=== PATIENT | female | born 1960 | race Caucasian/White ===

== ENCOUNTER 2019-01-09 09:58 | Emergency (ER) | payer OTHER ==
[2019-01-09] MEDS ORDERED: ONDANSETRON 4 MG/2 ML VIAL ONE ×2 (10:14→11:14)
[2019-01-09] MEDS ORDERED: NA CHLORIDE 0.9% 1,000 ML ONE (10:14)
[2019-01-09 10:50] LABS: Albumin 3.9 g/dL (3.4-5.0); Bilirubin Direct 0.2 mg/dL (0-0.2); Bilirubin Total 0.7 mg/dL (0.2-1.0); Potassium 3.4 mmol/L (3.5-5.1); Protein, Total 7.9 g/dL (6.4-8.2)
[2019-01-09 10:53] LABS: Absolute Lymphocytes (CBC) 0.8 K/uL (0.7-4.9); Basophils % 0.2 % (0-1.3); Hematocrit 41.1 % (36.0-45.0); Lymphocytes % 7.3 % (15.3-44.8); MPV 8.5 fL (7.6-11.3); RBC Red Blood Cell Count 4.77 M/uL (3.86-4.86)
[2019-01-09 11:37] LABS: Blood Morphology Comment NOT SEEN (NOT SEEN); Platelet Estimate ADEQ
--- NOTE | 2019-01-09 12:21 | ER ---
Nurse's Notes [facility] Name: Kristy Card Age: 58 yrs Sex: Female : 1960 Arrival Date: 01/09/2019 Time: 09:59 Bed 13 Private MD: Diagnosis: Vomiting;Diarrhea, unspecified Presentation: 01/09 10:06 Presenting complaint: Patient states: woke up this morning at 5 AM with nausea, vomited em once, took a hydroxizine at 10, denies pain, fever or dizziness. Transition of care: patient was not received from another setting of care. Onset of symptoms was January 09, 2019. Risk Assessment: Do you want to hurt yourself or someone else? Patient reports no desire to harm self or others. Initial Sepsis Screen: Does the patient meet any 2 criteria? No. Patient's initial sepsis screen is negative. Does the patient have a suspected source of infection? No. Patient's initial sepsis screen is negative. Care prior to arrival: None. 10:06 Method Of Arrival: Wheelchair em 10:10 Acuity: PRESLEY 3 iw Historical: - Allergies: 10:08 Sulfa (Sulfonamide Antibiotics); em - PMHx: 10:08 Diabetes - NIDDM; Hypertension; sick sinus symdrome; em - PSHx: 10:08 pacemaker; em - Immunization history:: Adult Immunizations not up to date. - Social history:: Smoking status: Patient/guardian denies using tobacco. - Ebola Screening: : Patient negative for fever greater than or equal to 101.5 degrees Fahrenheit, and additional compatible Ebola Virus Disease symptoms Patient denies exposure to infectious person Patient denies travel to an Ebola-affected area in the 21 days before illness onset No symptoms or risks identified at this time. Screenin:08 Abuse screen: Denies threats or abuse. Nutritional screening: No deficits noted. em Tuberculosis screening: No symptoms or risk factors identified. Fall Risk None identified. Assessment: 10:08 General: Appears in no apparent distress. uncomfortable, Behavior is calm, cooperative, em Denies fever. Pain: Denies pain. Neuro: Level of Consciousness is awake, alert, obeys commands, Oriented to person, place, time, situation, Appropriate for age Reports weakness generalized weakness. Cardiovascular: Capillary refill < 3 seconds Patient's skin is warm and dry. Respiratory: Airway is patent Respiratory effort is even, unlabored, Respiratory pattern is regular, symmetrical. GI: Abdomen is flat, Bowel sounds present X 4 quads. Abd is soft and non tender X 4 quads. Reports nausea, vomiting, Patient currently denies diarrhea. : Denies burning with urination. Derm: Skin is intact, is healthy with good turgor, Skin is pink, warm \T\ dry. Musculoskeletal: Capillary refill < 3 seconds, Range of motion: intact in all extremities. 11:10 Reassessment: Patient appears in no apparent distress at this time. Patient and/or em family updated on plan of care and expected duration. Pain level reassessed. Patient is alert, oriented x 3, equal unlabored respirations, skin warm/dry/pink. Patient denies pain at this time. Patient states feeling better. Patient states symptoms have improved. 12:30 Reassessment: Patient appears in no apparent distress at this time. Patient and/or em family updated on plan of care and expected duration. Pain level reassessed. Patient is alert, oriented x 3, equal unlabored respirations, skin warm/dry/pink. Patient states feeling better. Patient states symptoms have improved. Vital Signs: 10:08 BP 129 / 89; Pulse 75; Resp 18; Temp 98.0; Pulse Ox 100% on R/A; Pain 0/10; em 11:00 BP 119 / 65; Pulse 80; Resp 18; Pulse Ox 99% on R/A; Pain 0/10; em 12:00 BP 120 / 68; Pulse 69; Resp 16; Pulse Ox 99% on R/A; Pain 0/10; em ED Course: 09:59 Patient arrived in ED. rg4 10:01 Jef Abel LVN is Primary Nurse. em 10:01 Jose Pino NP is PHCP. pm1 10:01 Michael Bhatia MD is Attending Physician. pm1 10:08 Arm band placed on. em 10:08 Patient has correct armband on for positive identification. Placed in gown. Bed in low em position. Call light in reach. Side rails up X2. Adult w/ patient. Pulse ox on. NIBP on. 10:10 Triage completed. iw 10:22 Initial lab(s) drawn, by me, sent to lab. Inserted saline lock: 22 gauge in left em antecubital area, using aseptic technique. Blood collected. 12:24 No provider procedures requiring assistance completed. em 12:54 IV discontinued, intact, bleeding controlled, No redness/swelling at site. Pressure em dressing applied. Administered Medications: 10:24 Drug: NS 0.9% 1000 ml Route: IV; Rate: 1000 ml; Site: left antecubital; iw 12:55 Follow up: IV Status: Order to discontinue infusion; IV Intake: 800ml em 10:24 Drug: Zofran 4 mg Route: IVP; Site: left antecubital; iw 11:13 Follow up: Response: No adverse reaction; Nausea unchanged em 11:21 Drug: Zofran 4 mg Route: IVP; Site: left antecubital; em 11:55 Follow up: Response: No adverse reaction; Nausea is decreased em Intake: 12:55 IV: 800ml; Total: 800ml. em Outcome: 12:20 Discharge ordered by MD. pm1 12:53 Discharged to home ambulatory, with family. em 12:53 Condition: good 12:53 Discharge instructions given to patient, family, Instructed on discharge instructions, follow up and referral plans. medication usage, Demonstrated understanding of instructions, follow-up care, medications, Prescriptions given X 1. 12:57 Patient left the ED. em Signatures: Jef Abel LVN LVN em Katelynn Mtz RN RN iw Jose Pino NP [employer] pm1 Erika Haddad rg4
--- NOTE | 2019-01-09 12:21 | EDPHYS ---
Physician Documentation [facility] Name: Kristy Card Age: 58 yrs Sex: Female : 1960 Arrival Date: 01/09/2019 Time: 09:59 Bed 13 Private MD: ED Physician Michael Bhatia HPI: 01/09 10:15 This 58 yrs old Female presents to ER via Wheelchair with complaints of pm1 Vomiting, Weakness. 10:15 The patient presents to the emergency department with nausea, vomiting, multiple times, pm1 described as undigested food, diarrhea, 2 times since the onset of symptoms. Onset: The symptoms/episode began/occurred this morning, at 05:00. Possible causes: bad food exposure, possibly old or stale. The symptoms are aggravated by nothing. The symptoms are alleviated by nothing. Associated signs and symptoms: Pertinent negatives: abdominal pain, constipation, dysuria, fever. Severity of symptoms: in the emergency department the symptoms are unchanged Pain is currently a 0 / 10. Patient with complaints of vomiting and diarrhea. Patient ate some beans the past two days prior. She is questionable about the storage. Patient without any dysuria, abdominal pain, or fever. Historical: - Allergies: 10:08 Sulfa (Sulfonamide Antibiotics); em - PMHx: 10:08 Diabetes - NIDDM; Hypertension; sick sinus symdrome; em - PSHx: 10:08 pacemaker; em - Immunization history:: Adult Immunizations not up to date. - Social history:: Smoking status: Patient/guardian denies using tobacco. - Ebola Screening: : Patient negative for fever greater than or equal to 101.5 degrees Fahrenheit, and additional compatible Ebola Virus Disease symptoms Patient denies exposure to infectious person Patient denies travel to an Ebola-affected area in the 21 days before illness onset No symptoms or risks identified at this time. ROS: 10:15 Constitutional: Negative for fever, chills, and weight loss, Eyes: Negative for injury, pm1 pain, redness, and discharge, ENT: Negative for injury, pain, and discharge, Neck: Negative for injury, pain, and swelling, Cardiovascular: Negative for chest pain, palpitations, and edema, Respiratory: Negative for shortness of breath, cough, wheezing, and pleuritic chest pain. 10:15 Back: Negative for injury and pain, : Negative for injury, bleeding, discharge, and swelling, MS/Extremity: Negative for injury and deformity, Skin: Negative for injury, rash, and discoloration. 10:15 Abdomen/GI: Positive for nausea, vomiting, and diarrhea, Negative for abdominal pain. 10:15 Neuro: Positive for Generalized weakness, Negative for dizziness, headache, numbness, tingling. Exam: 10:15 Constitutional: This is a well developed, well nourished patient who is awake, alert, pm1 and in no acute distress. Head/Face: Normocephalic, atraumatic. Eyes: Pupils equal round and reactive to light, extra-ocular motions intact. Lids and lashes normal. Conjunctiva and sclera are non-icteric and not injected. Cornea within normal limits. Periorbital areas with no swelling, redness, or edema. ENT: Nares patent. No nasal discharge, no septal abnormalities noted. Tympanic membranes are normal and external auditory canals are clear. Oropharynx with no redness, swelling, or masses, exudates, or evidence of obstruction, uvula midline. Mucous membranes moist. Neck: Trachea midline, no thyromegaly or masses palpated, and no cervical lymphadenopathy. Supple, full range of motion without nuchal rigidity, or vertebral point tenderness. No Meningismus. Chest/axilla: Normal chest wall appearance and motion. Nontender with no deformity. No lesions are appreciated. Cardiovascular: Regular rate and rhythm with a normal S1 and S2. No gallops, murmurs, or rubs. Normal PMI, no JVD. No pulse deficits. Respiratory: Lungs have equal breath sounds bilaterally, clear to auscultation and percussion. No rales, rhonchi or wheezes noted. No increased work of breathing, no retractions or nasal flaring. Abdomen/GI: Soft, non-tender, with normal bowel sounds. No distension or tympany. No guarding or rebound. No evidence of tenderness throughout. Back: No spinal tenderness. No costovertebral tenderness. Full range of motion. Skin: Warm, dry with normal turgor. Normal color with no rashes, no lesions, and no evidence of cellulitis. MS/ Extremity: Pulses equal, no cyanosis. Neurovascular intact. Full, normal range of motion. 10:15 Neuro: Orientation: is normal, Motor: is normal, moves all fours. Vital Signs: 10:08 BP 129 / 89; Pulse 75; Resp 18; Temp 98.0; Pulse Ox 100% on R/A; Pain 0/10; em 11:00 BP 119 / 65; Pulse 80; Resp 18; Pulse Ox 99% on R/A; Pain 0/10; em 12:00 BP 120 / 68; Pulse 69; Resp 16; Pulse Ox 99% on R/A; Pain 0/10; em MDM: 10:03 Patient medically screened. pm1 11:27 Data reviewed: vital signs. Data interpreted: Pulse oximetry: on room air is 100 %. pm1 Interpretation: normal. 11:27 Counseling: I had a detailed discussion with the patient and/or guardian regarding: the pm1 historical points, exam findings, and any diagnostic results supporting the discharge/admit diagnosis, lab results. 12:19 Counseling: I had a detailed discussion with the patient and/or guardian regarding: the pm1 historical points, exam findings, and any diagnostic results supporting the discharge/admit diagnosis, the need for outpatient follow up, to return to the emergency department if symptoms worsen or persist or if there are any questions or concerns that arise at home. 01/09 10:13 Order name: Basic Metabolic Panel; Complete Time: 10:57 pm1 01/09 10:13 Order name: CBC with Diff; Complete Time: 11:40 pm1 01/09 10:13 Order name: Creatinine for Radiology; Complete Time: 10:57 pm1 01/09 10:13 Order name: Hepatic Function; Complete Time: 10:57 pm1 01/09 10:13 Order name: Lipase; Complete Time: 10:57 pm1 01/09 11:37 Order name: Manual Differential; Complete Time: 11:40 EDMS 01/09 10:13 Order name: IV Saline Lock; Complete Time: 10:27 pm1 01/09 10:13 Order name: Labs collected and sent; Complete Time: 10:27 pm1 01/09 10:17 Order name: Urine Dipstick-Ancillary (obtain specimen); Complete Time: 12:23 pm1 01/09 10:17 Order name: Urine Test (obtain specimen); Complete Time: 12:23 pm1 01/09 12:28 Order name: Urine Dipstick--Ancillary (enter results) mt Administered Medications: 10:24 Drug: NS 0.9% 1000 ml Route: IV; Rate: 1000 ml; Site: left antecubital; iw 12:55 Follow up: IV Status: Order to discontinue infusion; IV Intake: 800ml em 10:24 Drug: Zofran 4 mg Route: IVP; Site: left antecubital; iw 11:13 Follow up: Response: No adverse reaction; Nausea unchanged em 11:21 Drug: Zofran 4 mg Route: IVP; Site: left antecubital; em 11:55 Follow up: Response: No adverse reaction; Nausea is decreased em Disposition: 13:53 Co-signature as Attending Physician, Michael Bhatia MD. rn Disposition: 01/09/19 12:20 Discharged to Home. Impression: Vomiting, Diarrhea, unspecified. - Condition is Stable. - Discharge Instructions: Food Choices to Help Relieve Diarrhea, Adult, Clear Liquid Diet, Adult, Nausea and Vomiting, Adult, Viral Gastroenteritis, Adult. - Prescriptions for Zofran 4 mg Oral Tablet - take 1 tablet by ORAL route every 8 hours As needed; 20 tablet. - Medication Reconciliation Form, Thank You Letter, Antibiotic Education, Prescription Opioid Use form. - Follow up: Emergency Department; When: As needed; Reason: Worsening of condition. Follow up: Private Physician; When: 2 - 3 days; Reason: Recheck today's complaints, Continuance of care, Re-evaluation by your physician. - Problem is new. - Symptoms have improved. Signatures: Dispatcher [employer] EDMS Jef Abel, WASHROOM CLEANER WASHR[employer]OM CLEANER em Katelynn Mtz RN RN iw Nieto, Roman, MD MD rn Marinas, Patrick, [employer] pm1 Corrections: (The following items were deleted from the chart) 12:57 12:20 01/09/2019 12:20 Discharged to Home. Impression: Vomiting; Diarrhea, unspecified. em Condition is Stable. Forms are Medication Reconciliation Form, Thank You Letter, Antibiotic Education, Prescription Opioid Use. Follow up: Emergency Department; When: As needed; Reason: Worsening of condition. Follow up: Private Physician; When: 2 - 3 days; Reason: Recheck today's complaints, Continuance of care, Re-evaluation by your physician. Problem is new. Symptoms have improved. pm1
[2019-01-09 13:03] VITALS: TEMP 98
[2019-01-09 13:05] VITALS: O2SAT 99
[2019-01-09 13:05] LABS: Urine Blood NEGATIVE (NEG); Urine Glucose NEGATIVE (NEG); Urine Protein NEGATIVE (NEG); Urine Specific Gravity 1.015 (1.005-1.030); Urine pH 8.5 (5.0-7.0)
[2019-01-09 13:06] VITALS: BP 120/68
== END 2019-01-09 12:57 | disposition home or self-care (01) ==
LOC: ER 09:58
DX: R19.7 Diarrhea, unspecified (principal); I10 Essential (primary) hypertension; E11.9 Type 2 diabetes mellitus without complications; Z95.0 Presence of cardiac pacemaker; Z88.2 Allergy status to sulfonamides
CPT/HCPCS: 96361; 85025; 80048; 36415; 80076; 81003; 83690; 96374; 99284; J7030; J2405 ×2